=== PATIENT | male | born 1965 | race American Indian/Alaskan Native ===

== ENCOUNTER 2019-05-28 10:39 | Emergency (ER) | payer SELFPAY ==
[2019-05-28 10:47] VITALS: BP 137/83
--- NOTE | 2019-05-28 10:51 | Emergency Department Report ---
Chief Complaint: Upper Respiratory Infection Stated Complaint: FLU SYMPTOM Time Seen by Provider: 05/28/19 10:46 - HPI History of Present Illness: 54 y/o male comes in for a 5 day history of flu like symptom. Patient reports that he had subjective fever. Cough nasal congestion and backaches. - Exam Vital Signs: Vital Signs 05/28/19 10:43 Temperature 97.9 F Pulse Rate 79 Respiratory 18 Rate Blood Pressure 137/83 O2 Sat by Pulse 97 Oximetry Physical Exam: AxO times 3 NAD Non toxic Lungs CTA Heart RRR able to walk without difficulty MSE screening note: Focused history and physical exam performed. Due to findings the following was ordered: 54 y/o male comes in for a 5 day history of flu like symptom. Patient reports that he had subjective fever. Cough nasal congestion and backaches. Patient is out the window for benefits of Tamiflu. Recommend to continue with supportive care. ED Disposition for MSE Condition: Stable
== END 2019-05-28 11:36 | disposition left against medical advice (07) ==
LOC: ED 10:39
DX: R50.9 Fever, unspecified (principal); R09.81 Nasal congestion; M54.9 Dorsalgia, unspecified